=== PATIENT | male | born 1925 | race Caucasian/White ===

== ENCOUNTER 2017-01-12 10:10 | Emergency (ER) | payer OTHER ==
[~2017-01-12] VITALS: Ht 175.3 cm; Wt 77.2 kg
[~2017-01-12 10:10] MED LIST: ADVAIR HFA120 INHALA IH; AMLODIPINE-BEN1 EAC2 PO; AMLODIPINE-BEN1 EACH PO; AMLODIPINE-VAL1 EAC2 PO; ASCORBIC ACID500 M3 PO; BENADRYL25 MG PO; CALCIUM CARB1 TABLET PO; CIPRO500 MG PO; COUMADIN,JANTOVE1 MG PO; COUMADIN1 MG PO; COUMADIN3 MG PO; CRESTOR20 MG PO; DUONEB 2.5-0.5 M3 ML IPPB; ENDOCET 5-3251 EACH PO; FEOSOL325 MG PO; FOLIC ACID1 MG PO; HYDROCODON-ACE1 EAC7 PO; JANTOVEN2 MG PO; JANTOVEN6 MG PO; KENALOG,ARISTOC15 G2 TP; LOTREL 5/101 CAPSULE PO; MAG-AL PLUS SUS30 ML PO; METFORMIN HCL500 MG PO; METOPROLOL SUC100 MG PO; NOVOLOG PE100 UNITS/ SC; PANTOPRAZOLE SO40 MG PO; POLYETHYLENE GL17 GM PO; ROCEPHIN IM; SALINE FLUSH 1010 ML IV; SENNA-TIME S T1 EACH PO; SENOKOT S,PE1 TABLET PO; SPIRIVA1 INHALATI IH; THERAGRAN1 TABLET PO; TOPROL XL100 MG PO; Tylenol Regular Stre PO; WARFARIN SODIUM2 MG PO; WARFARIN SODIUM4 MG PO; ZOFRAN ODT4 MG PO
[2017-01-12 11:35] LABS: BASOPHIL COUNT 0.1 K/uL (0-0.1); EOSINOPHIL (%) 1.6 % (0-5); EOSINOPHIL COUNT 0.2 K/uL (0-0.3); HEMATOCRIT 45.2 % (38.0-50.0); IMMATURE GRANULOCYTE (%) 0.9 % (0.0-0.7); IMMATURE GRANULOCYTE COUNT 0.1 K/uL; INSTRUMENT ABS NEUTROPHIL CT 8.5 K/uL; LYMPHOCYTE COUNT 1.6 K/uL (1.0-2.8); MCH 32.8 PG (29.0-34.0); MCHC 33.8 G/DL (30.0-36.0); MEAN PLAT.VOLUME 8.9 uM^3 (9.0-12.4); MONOCYTE (%) 8.2 % (3-12); MONOCYTE COUNT 0.9 K/uL (0-0.8); NEUTROPHIL (%) 74.9 % (45-76); NEUTROPHIL COUNT 8.5 K/uL (1.8-6.4); PLATELET COUNT 220 K/uL (156-360); RBC DIS.WIDTH-CV 13.2 % (11.8-14.6); RED BLOOD COUNT 4.66 M/uL (4.00-5.50); WHITE BLOOD COUNT 11.4 K/uL (4.1-10.2)
[2017-01-12 11:43] LABS: CHLORIDE 105 mEq/L (99-109); POTASSIUM 3.8 mEq/L (3.7-5.4); SODIUM 140 mEq/L (136-147)
[2017-01-12 11:44] LABS: GLUCOSE 193 mg/dL (70-99)
[2017-01-12 11:46] LABS: ANION GAP 10 MEQ/L (2-14)
[2017-01-12 11:48] LABS: GFR ESTIMATE (CALCULATED) > 59 mL/min/
[2017-01-12 11:49] LABS: UREA NITROGEN (BUN) 17 mg/dL (9-23)
[2017-01-12 14:25] VITALS: BP 172/102
[2017-01-13] MEDS ORDERED: PERCOCET 5/31 TABLET PO (15:26)
== END 2017-01-12 14:26 | disposition home or self-care (01) ==
LOC: EME 10:10
PROVIDERS: Emergency Medicine
PROC: 0HQGXZZ Repair Left Hand Skin, External Approach (ICD-10-PCS; principal; 2017-01-12)
DX: S80.01XA Contusion of right knee, initial encounter (principal); S80.02XA Contusion of left knee, initial encounter; S61.215A Laceration without foreign body of left ring finger without damage to nail, initial encounter; W10.9XXA Fall (on) (from) unspecified stairs and steps, initial encounter; I10 Essential (primary) hypertension; E11.9 Type 2 diabetes mellitus without complications; Z87.442 Personal history of urinary calculi; F17.200 Nicotine dependence, unspecified, uncomplicated; Z96.653 Presence of artificial knee joint, bilateral
CPT/HCPCS: 73130; 73564; 80048; 85025; 99281; 99284

== ENCOUNTER 2017-01-13 12:26 | Emergency (ER) | payer OTHER ==
[~2017-01-13] VITALS: Ht 175.3 cm; Wt 76.0 kg
[2017-01-13] MEDS ORDERED: PERCOCET 5/31 TABLET PO (15:26)
[2017-01-13 15:51] VITALS: BP 164/85
== END 2017-01-13 15:53 | disposition home or self-care (01) ==
LOC: EME 12:26
DX: S80.02XD Contusion of left knee, subsequent encounter (principal); S80.01XD Contusion of right knee, subsequent encounter; W18.39XD Other fall on same level, subsequent encounter; I10 Essential (primary) hypertension; E11.9 Type 2 diabetes mellitus without complications; Z96.653 Presence of artificial knee joint, bilateral; Z85.828 Personal history of other malignant neoplasm of skin; F17.200 Nicotine dependence, unspecified, uncomplicated
CPT/HCPCS: 73521; 99281; 99284

== ENCOUNTER 2017-02-11 08:13 | Emergency (ER) | payer OTHER ==
[~2017-02-11] VITALS: Ht 175.3 cm; Wt 75.3 kg
[~2017-02-11 08:13] MED LIST changes: +PERCOCET 5/31 TABLET PO
[2017-02-11 09:28] LABS: HEMATOCRIT 45.6 % (38.0-50.0); MCH 31.9 PG (29.0-34.0); MCHC 32.5 G/DL (30.0-36.0); MCV 98.3 FL (86-99); MEAN PLAT.VOLUME 8.9 uM^3 (9.0-12.4); PLATELET COUNT 218 K/uL (156-360); RBC DIS.WIDTH-CV 13.2 % (11.8-14.6); RBC DIS.WIDTH-SD 47.7 % (39-53); RED BLOOD COUNT 4.64 M/uL (4.00-5.50); WHITE BLOOD COUNT 12.2 K/uL (4.1-10.2)
[2017-02-11 09:36] LABS: CHLORIDE 104 mEq/L (99-109); POTASSIUM 4.1 mEq/L (3.7-5.4); SODIUM 140 mEq/L (136-147)
[2017-02-11 09:38] LABS: GLUCOSE 168 mg/dL (70-99)
[2017-02-11 09:40] LABS: ANION GAP 9 MEQ/L (2-14); TOTAL BILIRUBIN 0.5 mg/dL (0.0-1.0)
[2017-02-11 09:42] LABS: ALKALINE PHOSPHATASE 81 IU/L (3-129); GFR ESTIMATE (CALCULATED) 55 mL/min/
[2017-02-11 09:43] LABS: UREA NITROGEN (BUN) 19 mg/dL (9-23)
[2017-02-11 14:00] VITALS: BP 171/84
== END 2017-02-11 14:04 | disposition home or self-care (01) ==
LOC: EME → EDBD 08:13 → EME 08:13
PROVIDERS: Nurse Practitioner Family
DX: I77.1 Stricture of artery (principal); I70.203 Unspecified atherosclerosis of native arteries of extremities, bilateral legs; M79.605 Pain in left leg; M79.604 Pain in right leg; Z95.820 Peripheral vascular angioplasty status with implants and grafts; I10 Essential (primary) hypertension; E11.9 Type 2 diabetes mellitus without complications; F32.9 Major depressive disorder, single episode, unspecified; Z85.828 Personal history of other malignant neoplasm of skin; Z96.653 Presence of artificial knee joint, bilateral; Z85.038 Personal history of other malignant neoplasm of large intestine; Z90.49 Acquired absence of other specified parts of digestive tract; F17.200 Nicotine dependence, unspecified, uncomplicated
CPT/HCPCS: 73706; 80053; 85027; 99281; 99284; J7030

== ENCOUNTER 2017-03-04 22:23 | Emergency (ER) | payer OTHER ==
[~2017-03-04] VITALS: Ht 177.8 cm; Wt 76.0 kg
[2017-03-04 23:20] LABS: HEMATOCRIT 40.7 % (38.0-50.0); MCH 31.1 PG (29.0-34.0); MCHC 32.7 G/DL (30.0-36.0); MCV 95.3 FL (86-99); MEAN PLAT.VOLUME 8.5 uM^3 (9.0-12.4); PLATELET COUNT 249 K/uL (156-360); RBC DIS.WIDTH-CV 12.8 % (11.8-14.6); RBC DIS.WIDTH-SD 44.8 % (39-53); RED BLOOD COUNT 4.27 M/uL (4.00-5.50); WHITE BLOOD COUNT 13.1 K/uL (4.1-10.2)
[2017-03-04 23:36] LABS: CHLORIDE 104 mEq/L (99-109); POTASSIUM 4.2 mEq/L (3.7-5.4); SODIUM 140 mEq/L (136-147)
[2017-03-04 23:38] LABS: GLUCOSE 159 mg/dL (70-99)
[2017-03-04 23:39] LABS: ANION GAP 13 MEQ/L (2-14)
[2017-03-04 23:40] LABS: TOTAL BILIRUBIN 0.9 mg/dL (0.0-1.0)
[2017-03-04 23:41] LABS: ALKALINE PHOSPHATASE 72 IU/L (3-129)
[2017-03-04 23:42] LABS: GFR ESTIMATE (CALCULATED) 55 mL/min/
[2017-03-04 23:43] LABS: TROP-I INTERPRETATION NEGATIVE; TROPONIN-I < 0.01 ng/mL (0.0-0.30); UREA NITROGEN (BUN) 15 mg/dL (9-23)
[2017-03-04 23:45] LABS: LIPASE 9 U/L (1.0-51.0)
[2017-03-05] MEDS ORDERED: ZOFRAN8 MG PO (00:18)
[2017-03-05] MEDS ORDERED: VENTOLIN HFA18 GM IH (00:18)
[2017-03-05 00:42] LABS: ADD MIUA? YES; BILIRUBIN NEGATIVE; BLOOD SMALL; COLOR YELLOW ((YELLOW)); GLUCOSE (STRIP) 50; KETONES 20; LEUKOCYTES NEGATIVE; NITRITE NEGATIVE; PROTEIN (STRIP) 100; UROBILINOGEN 0.2 MG/DL (0.2-1.0)
[2017-03-05 01:02] VITALS: BP 157/75
[2017-03-05 01:14] LABS: MUCUS 3+ /LPF
[2017-03-05 01:16] LABS: AMORPHOUS URATES CRYSTALS 1+; BACTERIA NONE SEEN /HPF; CASTS PRESENT /LPF; CRYSTALS PRESENT; EPITHELIAL CELLS 1+ /HPF; HYALINE CASTS 0-5 /LPF; RED BLOOD CELLS 0-5 /HPF (0-5); UCUL ADDED? NO; WHITE BLOOD CELLS NONE SEEN /HPF (0-5)
== END 2017-03-05 01:03 | disposition home or self-care (01) ==
LOC: EME 22:23
PROVIDERS: Emergency Medicine
DX: J20.9 Acute bronchitis, unspecified (principal); R31.9 Hematuria, unspecified; R11.0 Nausea; Z87.442 Personal history of urinary calculi; I10 Essential (primary) hypertension; Z85.038 Personal history of other malignant neoplasm of large intestine; Z85.828 Personal history of other malignant neoplasm of skin; F17.200 Nicotine dependence, unspecified, uncomplicated
CPT/HCPCS: 71020; 80053; 81003; 83690; 83880; 84484; 85027; 93005; 94640; 99281; 99284